=== PATIENT | female | born 1950 | race Caucasian/White ===

== ENCOUNTER 2017-01-12 05:31 | Day surgery (SDC) | payer MEDICARE, OTHER ==
[~2017-01-12 05:31] MED LIST: *CPAP; ASPIRIN81 M1 PO; BENEFIBER1 EAC1 PO; MULTI-VITAMIN1 EAC3 PO; TUMERIC; TYLENOL EXTRA500 M1 PO; VITAMIN D31000 UNI3 PO
[2017-01-12 06:25] LABS: BASO % 0.2 % (0-2); EOS % 2.4 % (0-7); EOSINOPHIL ABSOLUTE COUNT 0.2 tho/cmm (0.0-0.7); HCT-HEMATOCRIT 42.7 % (34.0-49.0); HGB-HEMOGLOBIN 14.5 gm/dl (12.0-15.5); IMMATURE GRANULOCYTES ABSOLUTE 0.01 tho/cmm (0-0.03); IMMATURE GRANULOCYTES PERCENT 0.2 % (0-0.3); LYMPH % 30.8 % (20-45); LYMPH ABSOLUTE COUNT 1.9 tho/cmm (0.8-4.5); MCH (MEAN CORPUSCULAR HGB) 30.1 pg (28.0-32.0); MCV (MEAN CELL VOLUME) 88.8 fl (82.0-96.0); MEAN PLATELET VOLUME 10.2 cmc (9.4-12.4); MONO % 9.7 % (0-12); MONOCYTE ABSOLUTE COUNT 0.6 tho/cmm (0.0-1.2); NEUTROPHIL ABSOLUTE COUNT 3.5 tho/cmm (1.6-8.0); NEUTROPHIL-AUTOMATED 3.5 tho/cmm (1.6-8.0); NEUTROPHILS % 56.7 % (40-80); PLATELET COUNT 294 tho/cmm (150-450); RED BLOOD COUNT 4.81 mil/cmm (4.00-5.20); RED CELL DISTRIBUTION WIDTH 13.3 % (12.4-16.4); WHITE BLOOD COUNT 6.2 tho/cmm (4.0-10.0)
--- NOTE | 2017-01-12 18:35 | NUR ---
VIRTUAL CARE NOTE: ASSESSMENT DEFERRED. PT SLEEPING.
[2017-01-13 05:01] LABS: HCT-HEMATOCRIT 38.4 % (34.0-49.0); HGB-HEMOGLOBIN 12.8 gm/dl (12.0-15.5); MCV (MEAN CELL VOLUME) 89.1 fl (82.0-96.0); RED CELL DISTRIBUTION WIDTH 13.2 % (12.4-16.4)
[2017-01-13] MEDS ORDERED: NORCO 5-325 TA1 EACH PO (13:53)
[2017-01-13] MEDS ORDERED: STOP THE FOLLOWING (13:54)
== END 2017-01-13 19:25 ==
LOC: BREPO 05:31 → SHSB 05:38 → ORW 11:52 → PACU 14:33 → 5WD 15:50
PROVIDERS: Anesthesiology; Surgery
PROC: 0HTV0ZZ Resection of Bilateral Breast, Open Approach (ICD-10-PCS; principal; 2017-01-12)
PROC: 07B50ZX Excision of Right Axillary Lymphatic, Open Approach, Diagnostic (ICD-10-PCS; 2017-01-12)
DX: D05.11 Intraductal carcinoma in situ of right breast (principal); D18.09 Hemangioma of other sites; N60.32 Fibrosclerosis of left breast; I10 Essential (primary) hypertension; E66.9 Obesity, unspecified; M19.90 Unspecified osteoarthritis, unspecified site; F41.9 Anxiety disorder, unspecified; G47.30 Sleep apnea, unspecified; K21.9 Gastro-esophageal reflux disease without esophagitis; Z79.82 Long term (current) use of aspirin; Z79.899 Other long term (current) drug therapy; Z88.0 Allergy status to penicillin; Z88.2 Allergy status to sulfonamides; Z88.8 Allergy status to other drugs, medicaments and biological substances; Z91.018 Allergy to other foods; Z87.891 Personal history of nicotine dependence; Z90.710 Acquired absence of both cervix and uterus; Z98.890 Other specified postprocedural states
CPT/HCPCS: A9520; J1956; J2250; J2270; J2405